=== PATIENT | male | born 1975 ===

== ENCOUNTER 2017-07-15 21:27 | Emergency (ER) | payer OTHER ==
[2017-07-15 21:39] VITALS: BP 154/81; PULSE 79; RESP 18; TEMP 97.4; O2SAT 100
[2017-07-15] MEDS ORDERED: Oxycodone/Acetaminophen 5/325 mg Tab PO STA (21:46)
--- NOTE | 2017-07-15 21:49 | ED PDOC ---
Arrival/HPI - General Chief Complaint: Lower Extremity Problem/Injury Time Seen by Provider: 07/15/17 21:38 Historian: Patient - History of Present Illness Narrative History of Present Illness (Text): 07/15/17 21:45 All Mendes is a 41 year old male who presents to the ED status post mechanical fall tonight. Patient states he twisted his left leg and fell down some stairs prior to arrival. Patient now complaining of left mid thigh pain and left posterior knee pain. Patient denies any weakness/numbness/tingling in the extremity, head trauma, loss of consciousness, back pain, neck pain, or any other complaints. 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 - Anesthesia Hx Anesthesia: No Family/Social History - Physician Review Nursing Documentation Reviewed: Yes Family/Social History: Unknown Family HX Smoking Status: Never Smoked Hx Alcohol Use: Yes Frequency of alcohol use: Socially Hx Substance Use: No Allergies/Home Meds Allergies/Adverse Reactions: Allergies peanut Allergy (Verified 07/15/17 21:37) ANAPHYLAXIS pine nut Allergy (Verified 07/15/17 21:37) ANAPHYLAXIS tree nut Allergy (Verified 07/15/17 21:37) ANAPHYLAXIS vancomycin Allergy (Verified 07/15/17 21:37) ITCHING Review of Systems - Physician Review All systems were reviewed & negative as marked: Yes - Review of Systems Constitutional: Normal. absent: Fevers Eyes: Normal ENT: Normal Respiratory: Normal. absent: SOB, Cough Cardiovascular: Normal. absent: Chest Pain Gastrointestinal: Normal. absent: Abdominal Pain, Diarrhea, Nausea, Vomiting Genitourinary Male: Normal. absent: Dysuria, Frequency, Hematuria, Urinary Output Changes Musculoskeletal: Arthralgias (+left posterior knee pain), Myalgias (+left mid thight pain). absent: Back Pain, Neck Pain Skin: Normal Neurological: Normal. absent: Headache, Dizziness Endocrine: Normal Hemo/Lymphatic: Normal Psychiatric: Normal Physical Exam Vital Signs Reviewed: Yes Vital Signs Temp Pulse Resp BP Pulse Ox 07/15/17 21:39 97.4 F L 79 18 154/81 H 100 Temperature: Afebrile Blood Pressure: Normal Pulse: Regular Respiratory Rate: Normal Appearance: Positive for: Well-Appearing, Non-Toxic, Comfortable Pain Distress: None Mental Status: Positive for: Alert and Oriented X 3 - Systems Exam Head: Present: Atraumatic, Normocephalic Pupils: Present: PERRL Extroacular Muscles: Present: EOMI Conjunctiva: Present: Normal Mouth: Present: Moist Mucous Membranes Neck: Present: Normal Range of Motion Respiratory/Chest: Present: Clear to Auscultation, Good Air Exchange. No: Respiratory Distress, Accessory Muscle Use Cardiovascular: Present: Regular Rate and Rhythm, Normal S1, S2. No: Murmurs Abdomen: Present: Normal Bowel Sounds. No: Tenderness, Distention, Peritoneal Signs Upper Extremity: Present: Normal Inspection. No: Cyanosis, Edema Lower Extremity: Present: NORMAL PULSES, Normal ROM (Full range of motion at left knee and left hip), Tenderness (Palpable tenderness along left anterior/ lateral thigh), Neurovascularly Intact, Capillary Refill < 2 s. No: Edema, Swelling (No gross swelling), Erythema, Temperature Abnormalties Neurological: Present: GCS=15, CN II-XII Intact, Speech Normal Skin: Present: Warm, Dry, Normal Color. No: Rashes Medical Decision Making ED Course and Treatment: 07/15/17 21:46 Impression: 41 year old male c/o left mid-thigh pain and left posterior knee pain s/p fall prior to arrival. Differential Diagnosis included but are not limited to: fracture vs. sprain vs. contusion Plan: -- XR Left Knee -- XR Left Femur -- Toradol -- Percocet -- Reassess and disposition 07/15/17 23:13 Radiology reviewed, XR Left Knee shows no acute processes, no fractures. XR Left Femur shows no acute processes, no fractures. - RAD Interpretation Radiology Orders: 07/15/17 21:47 Femur Left [FEMUR MIN 2 VIEWS LT] [RAD] Stat KNEE LEFT 2 VIEWS (AP & LAT) [RAD] Stat [employer]: ED Physician - Medication Orders Current Medication Orders: Discontinued Medications Ketorolac Tromethamine (Toradol) 60 mg IM ONCE ONE Stop: 07/15/17 21:47 Last Admin: 07/15/17 21:55 Dose: 60 mg MAR Pain Assessment Document 07/15/17 21:55 SS (Rec: 07/15/17 21:[address]) Pain Reassessment Is this a pain reassessment? No Presence of Pain Presence of Pain Yes Pain Scale Used Pain Scale Used Numeric Location Left, Right or Bilateral Left Pain Location Body Site Thigh Description Description Constant Intensity of Pain at present 10 IM Administration Charges Document 07/15/17 21:55 SS (Rec: 07/15/17 21:[address]) Charges for Administration # of IM Administrations 1 Oxycodone/Acetaminophen (Percocet 5/325 Mg Tab) 1 tab PO STAT STA Stop: 07/15/17 21:47 Last Admin: 07/15/17 22:05 Dose: 1 tab MAR Pain Assessment Document 07/15/17 22:05 SS (Rec: 07/15/17 22:[address]) Pain Reassessment Is this a pain reassessment? No Sleep Is patient sleeping during reassessment? No Presence of Pain Presence of Pain Yes Pain Scale Used Pain Scale Used Numeric Description Description Constant Intensity of Pain at present 10 - Scribe Statement The provider has reviewed the documentation as recorded by the Scribconnie Gage All medical record entries made by the Kristaibconnie were at my direction and personally dictated by me. I have reviewed the chart and agree that the record accurately reflects my personal performance of the history, physical exam, medical decision making, and the department course for this patient. I have also personally directed, reviewed, and agree with the discharge instructions and disposition. Disposition/Present on Arrival - Present on Arrival Any Indicators Present on Arrival: No History of DVT/PE: No History of Uncontrolled Diabetes: No Urinary Catheter: No History of Decub. Ulcer: No History Surgical Site Infection Following: None - Disposition Have Diagnosis and Disposition been Completed?: Yes Diagnosis: Muscle strain, Muscle strain of lower extremity Disposition: HOME/ ROUTINE Disposition Time: 23:43 Patient Plan: Discharge Condition: STABLE Discharge Instructions (ExitCare): Muscle Strain (ED) Additional Instructions: Maintain immobilizer/use crutches/meds as prescribed/follow up with the orthopedist this week Prescriptions: oxyCODONE/Acetaminophen [Percocet 5/325 mg Tab] 1 ea PO Q6 PRN #14 tab PRN Reason: Pain, Moderate (4-7) Referrals: Eric Allison MD [Primary Care Provider] - Follow up with primary Danis Aldana MD [Staff Provider] - Follow up with primary Forms: [employer] ([place]rainian)
--- NOTE | 2017-07-16 08:39 | RAD ---
PROCEDURE: Left Knee Radiographs. HISTORY: Pain. COMPARISON: None. FINDINGS: BONES: Normal. No fracture. JOINTS: Normal. No osteoarthritis. JOINT EFFUSION: None. OTHER FINDINGS: None. IMPRESSION: Normal radiographs of the left knee.
--- NOTE | 2017-07-16 08:41 | RAD ---
PROCEDURE: Left Femur Radiographs. HISTORY: injury COMPARISON: None. TECHNIQUE: AP and Lateral Radiographs of the left femur. FINDINGS: FEMUR: Normal. No fracture. SOFT TISSUES: Normal. OTHER FINDINGS: None. IMPRESSION: Unremarkable radiographs of the left femur.
== END 2017-07-15 23:55 | disposition home or self-care (01) ==
LOC: ED 21:27
DX: S86.912A Strain of unspecified muscle(s) and tendon(s) at lower leg level, left leg, initial encounter (principal); X50.1XXA Overexertion from prolonged static or awkward postures, initial encounter; Y92.9 Unspecified place or not applicable
CPT/HCPCS: 73552; 73560; 96372; 99283; J1885